=== PATIENT | female | born 1950 | race Caucasian/White ===

== ENCOUNTER 2024-04-10 07:24 | Day surgery (SDC) | payer OTHER ==
[~2024-04-10] VITALS: Ht 152.4 cm; Wt 81.6 kg
[2024-04-10] MEDS ORDERED: MEPERIDINE 100 MG INJ. 100 MG/ML VIAL ONE (07:38)
[2024-04-10] MEDS ORDERED: MIDAZOLAM HCL 5 MG/5 ML VIAL ONE (07:39)
[2024-04-10] MEDS ORDERED: fentaNYL CITRATE/PF 100 MCG/2 ML AMP ONE (07:56)
[2024-04-10 13:10] VITALS: TEMP 97.3; O2SAT 99
[2024-04-10 13:11] VITALS: BP_SYST 156; PULSE 67; RESP 22
== END 2024-04-10 10:32 | disposition home or self-care (01) ==
LOC: SDS 07:24 → SMU 07:25 → SDS 10:32
PROVIDERS: ATTEND Student in an Organized Health Care Education/Training Program
DX: R19.5 Other fecal abnormalities (principal); D12.0 Benign neoplasm of cecum; K57.30 Diverticulosis of large intestine without perforation or abscess without bleeding; K64.8 Other hemorrhoids; I10 Essential (primary) hypertension; E11.9 Type 2 diabetes mellitus without complications; E78.5 Hyperlipidemia, unspecified; Z88.5 Allergy status to narcotic agent; Z98.890 Other specified postprocedural states; Z79.899 Other long term (current) drug therapy
CPT/HCPCS: 45385; 99152; 82948; 88305; G0378; J2250; J3010; J2175